=== PATIENT | male | born 1985 | race Caucasian/White ===

== ENCOUNTER 2023-08-25 17:14 | Emergency (ER) | payer OTHER ==
[~2023-08-25] VITALS: Ht 172.7 cm; Wt 87.0 kg
[2023-08-25 17:17] VITALS: O2SAT 100
[2023-08-25 18:18] LABS: CLARITY URINE CLEAR (CLEAR); COLOR URINE YELLOW (YELLOW); GLUCOSE URINE NEGATIVE (NEGATIVE); KETONES URINE NEGATIVE (NEGATIVE); LEUKOCYTE ESTERASE URINE NEGATIVE (NEGATIVE); NITRITE URINE NEGATIVE (NEGATIVE); OCCULT BLOOD URINE NEGATIVE (NEGATIVE); PROTEIN URINE NEGATIVE (NEGATIVE); SPECIFIC GRAVITY URINE 1.007 (1.005-1.030); UROBILINOGEN URINE 0.2 E.U./dL (0.2-1.0)
[2023-08-25] MEDS: LACTATED RINGERS 1,000 ML IV SCH (18:21)
[2023-08-25] MEDS: LEVETIRACETAM 500MG PREMIX 100 ML IV ONE ×2 (18:28→18:29)
[2023-08-25 18:41] LABS: *AMPHETAMINES SCREEN URINE NEGATIVE (NEGATIVE); *BARBITURATES SCREEN URINE NEGATIVE (NEGATIVE); *COCAINE SCREEN URINE NEGATIVE (NEGATIVE); ECSTASY MDMA SCREEN URINE NEGATIVE (NEGATIVE); METHADONE URINE SCREEN NEGATIVE (NEGATIVE); OPIATES URINE SCREEN NEGATIVE (NEGATIVE); PHENCYCLIDINE URINE SCREEN NEGATIVE (NEGATIVE)
[2023-08-25 19:07] LABS: EOSINOPHILS % 0.8 % (0.0-5.0); HEMATOCRIT. 40.5 % (42.0-52.0); HEMOGLOBIN. 13.6 g/dL (14.0-18.0); LYMPHOCYTES % 28.6 % (20.0-50.0); MEAN CORPUSCULAR HEMOGLOBIN 31.2 pg (28.0-32.0); MEAN CORPUSCULAR HGB CONC 33.7 g/dL (31.0-37.0); MEAN CORPUSCULAR VOLUME 92.7 fL (80.0-94.0); MEAN PLATELET VOLUME 7.4 fl (7.4-10.4); MONOCYTES % 2.5 % (2.0-8.0); NEUTROPHILS % 67.1 % (40.0-76.0); PLATELET 281 x1000/uL (130-400); RED BLOOD CELL COUNT 4.37 mill/uL (4.7-6.1); RED CELL DISTRIBUTION WIDTH 12.5 % (11.6-14.6); WHITE BLOOD COUNT 8.4 x1000/uL (4.5-11.0)
[2023-08-25 19:14] LABS: CHLORIDE 105 mEq/L (98-107); POTASSIUM 3.9 mEq/L (3.5-5.1); SODIUM 145 mEq/L (136-145)
[2023-08-25 19:15] LABS: CALCIUM 7.9 mg/dL (8.7-10.4); CARBON DIOXIDE 25 mEq/L (21-32)
[2023-08-25 19:20] LABS: CREATININE 0.7 mg/dL (0.6-1.3); GLUCOSE 141 mg/dL (70-105); TROPONIN I HIGH SENSITIVITY 6 ng/L (3.0-53); UREA NITROGEN BLOOD 8 mg/dL (9-23)
[2023-08-25 19:21] LABS: ETHANOL BLOOD 300 mg/dL (<10)
[2023-08-25 19:22] LABS: ACETAMINOPHEN < 2 ug/mL (10-30); ALANINE AMINOTRANSFERASE 36 IU/L (10-49); ALBUMIN 4.1 g/dL (3.2-4.8); ASPARTATE AMINOTRANSFERASE 100 IU/L (<34); BILIRUBIN TOTAL 0.5 mg/dL (0.1-1.0); CREATINE KINASE 124 IU/L (46-171); PROTEIN TOTAL 7.1 g/dL (6.0-8.3)
[2023-08-25] MEDS ORDERED: DEXTROSE 50% WATER 50ML SYRINGE IV PRN (19:30)
[2023-08-25] MEDS ORDERED: ACETAMINOPHEN 325MG TABLET PO PRN ×2 (19:30)
[2023-08-25] MEDS ORDERED: DOCUSATE SODIUM 100MG CAPSULE PO PRN (19:30)
[2023-08-25] MEDS ORDERED: CLONIDINE 0.1MG TABLET PO PRN (19:30)
[2023-08-25] MEDS ORDERED: GUAIFENESIN 200MG/10ML SUGAR FREE UDC PO PRN (19:30)
[2023-08-25] MEDS ORDERED: ONDANSETRON HCL 4MG/2ML INJ IV PRN (19:30)
[2023-08-25] MEDS ORDERED: MAGNESIUM/ALUMINUM HYDROXIDE/SIMETHICONE 30ML UDC PO PRN (19:30)
[2023-08-25] MEDS ORDERED: LORAZEPAM 2MG/ML INJ IV PRN ×2 (19:30)
[2023-08-25 20:00] VITALS: PULSE 102; RESP 24
[2023-08-25] MEDS: IPRATROPIUM/ALBUTEROL 0.5-3(2.5)MG/3ML NEB HHN PRN (20:00)
[2023-08-25] MEDS: INSULIN LISPRO 100 UNITS/ML SUBCUT SCH (21:00)
[2023-08-25] MEDS ORDERED: FAMOTIDINE 20MG/2ML VIAL IV SCH (21:00)
[2023-08-25] MEDS: PIPERACILLIN/TAZO 3.375G/50ML 50 ML IV SCH (21:03)
[2023-08-25] MEDS: THIAMINE HCL 100MG TABLET PO SCH (21:06)
[2023-08-25] MEDS: MVI, ADULT NO.1 10 ML, FOLIC ACID 1 MG, THIAMINE HCL 100 MG in SODIUM CHLORIDE 0.9% 1,0... IV SCH (21:11)
[2023-08-25] MEDS: BLOOD SUGAR DIAGNOSTIC STRIP TEST SCH (21:28)
[2023-08-25 22:24] LABS: AMMONIA < 17 uMol/L (<32)
[2023-08-25 22:36] LABS: LACTIC ACID 4.2 mmol/L (0.4-2.0)
[2023-08-25 23:02] VITALS: BP 125/80; PULSE 88; RESP 15; TEMP 98.3
[2023-08-25 23:34] LABS: CHLORIDE 104 mEq/L (98-107); POTASSIUM 3.7 mEq/L (3.5-5.1); SODIUM 145 mEq/L (136-145)
[2023-08-25 23:35] LABS: CARBON DIOXIDE 22 mEq/L (21-32)
[2023-08-25 23:40] LABS: CREATININE 0.7 mg/dL (0.6-1.3); GLUCOSE 137 mg/dL (70-105); UREA NITROGEN BLOOD 6 mg/dL (9-23)
[2023-08-25 23:42] LABS: ALANINE AMINOTRANSFERASE 35 IU/L (10-49); ALBUMIN 3.9 g/dL (3.2-4.8); ASPARTATE AMINOTRANSFERASE 103 IU/L (<34); BILIRUBIN TOTAL 0.5 mg/dL (0.1-1.0); PHOSPHORUS 4.1 mg/dL (2.5-4.9); PROTEIN TOTAL 6.9 g/dL (6.0-8.3)
[2023-08-26 01:31] LABS: CREATINE KINASE MB FRACTION 0.7 ng/mL (0.5-3.6)
[2023-08-26] MEDS ORDERED: FOLIC ACID 1MG TABLET PO SCH (09:00)
[2023-08-26] MEDS ORDERED: ENOXAPARIN 40MG/0.4ML SYR SUBCUT SCH (09:00)
[2023-08-28 08:46] LABS: HEPATITIS B SURFACE ANTIGEN NEGATIVE (Negative)
[2023-08-28 09:08] LABS: HEPATITIS A AB IGM NEGATIVE (Negative); HEPATITIS B CORE AB IGM NEGATIVE (Negative); HEPATITIS C AB NON REACTIVE (Neg) (Negative)
== END 2023-08-26 03:15 | disposition left against medical advice (07) ==
LOC: EDBD 17:14 → ER 17:14 → EDBEDREQSVC 19:21 → EDBEDREQTM 19:21 → EDBEDREQ 19:21 → ER 08-26 03:15
DX: R41.82 Altered mental status, unspecified (principal)
CPT/HCPCS: 80053; 80305; 81003; 80307; 80329; 80320; 82140; 82550; 82962; 83036; 83605 ×2; 83690; 83735; 84100; 85025; 87340; 84484 ×2; 36415; 86705; 86709; 84145; 71045; 70450; 94640; 93005; 96367; 96368; 96365; 96366; 99291; 82553; 93970; J1953; J3490 ×2; J2543; J3411; Z7610 ×3; J7030; G0480